=== PATIENT | male | born 1945 | race Caucasian/White ===

== ENCOUNTER 2017-08-29 12:33 | Observation (INO) | payer OTHER ==
--- NOTE | 2017-08-29 12:37 | EDPHY ---
H & P Time Seen by Provider: 08/29/17 12:36 HPI/ROS: CHIEF COMPLAINT: Shortness of breath and lightheaded HISTORY OF PRESENT ILLNESS: Patient has a history of atrial fibrillation and coronary disease with aortic valve replacement and is currently on Eliquis. He has noticed over the last 3 weeks using his Apple watch that his heart rate varies from 35-100. He has been feeling intermittently lightheaded over this time. He presents today with shortness of breath which is worse lying down and present over the last week, but not reliably associated with exercise or time of day. Able to walk the dog, didn't get worse then. Symptoms not associated with chest pain cough or fever or leg swelling. Mild to moderate and persistent , slightly worse past 48 hours. Patient has not had his dose of Eliquis or Coreg changed recently, nor has he missed any of the doses of those medications in the last week. REVIEW OF SYSTEMS: Eye: no change in vision ENT: no sore throat Cardiac: no chest pain or syncope, several episodes of near syncope, no actual fainting Pulmonary: No coughing or hemoptysis Abdomen: no vomiting, diarrhea, or abdominal pain; no melena Musculoskeletal: no back pain or leg swelling Skin: no rash Neuro: no headache Constitutional: no fever : no urinary symptoms A comprehensive 10 point review of systems is otherwise negative aside from elements mentioned in the history of present illness. PAST MEDICAL HISTORY: Emergency department record 05/31/2015 personally reviewed. History and physical dated 05/19/2015 personally reviewed. Includes coronary artery disease with LAD stenting in 2000, hypertension, hyperlipidemia , BPH, osteoarthritis, bypass surgery and aortic valve replacement in June 2015 Social history: Nonsmoker General Appearance: Alert and conversant, cooperative. Eyes: No scleral icterus. ENT, Mouth: Normal mucous membranes. Respiratory: Normal respiratory effort, breath sounds equal, lungs are clear to auscultation. Cardiovascular: Regular rate and rhythm. 2/6 systolic murmur, bradycardic. Gastrointestinal: Abdomen is soft and non tender. Neurological: Alert and oriented x3. Normally conversant. Face symmetric, normal movement and sensation in all extremities. Skin: Warm and dry, no rashes. Musculoskeletal: No peripheral edema and no joint swelling. No calf tenderness. Psychiatric: Not agitated. Emergency Department course/MDM: Patient noted in the emergency department to have recurrent bradycardia down to a heart rate of 30. On the strips it does appear to be sinus rhythm. Plan for chest x-ray, labs to include BNP and troponin, cardiac monitoring. I think that pulmonary embolism would be unlikely since he is taking Eliquis. Plan for admission, consideration of holding Coreg, cardiology consultation with monitoring for bradycardia. Slowest heart rate seen on the monitor in the emergency department is around 30. Discussed with Regine Rainey at 1318. 1320: Results and plan discussed with the patient. Chest x-ray reviewed with him on the computer. Reason for transfer for inpatient telemetry and cardiology consultation not available at [facility] discussed and consented. Transported by ALS, medical necessity is for bradycardia and monitoring. Smoking Status: Never smoked Constitutional: Initial Vital Signs Temperature (C) 36.7 C 08/29/17 12:39 Heart Rate 40 L 08/29/17 12:39 Respiratory Rate 18 08/29/17 12:39 Blood Pressure 127/61 H 08/29/17 12:39 O2 Sat (%) 97 08/29/17 12:39 O2 Delivery Mode Room Air Allergies/Adverse Reactions: No Known Allergies Allergy (Verified 08/29/17 12:38) Home Medications: Medication Instructions Recorded Atorvastatin Calcium [Lipitor 40 40 mg PO HS 05/18/15 mg (*)] Desonide 0.05% [Desonide 0.05% 1 hazel TP TID PRN 05/18/15 Cream (*)] Finasteride [Proscar 5 MG (*)] 5 mg PO DAILY 05/18/15 Herbals/Supplements -Info Only 1 dose AD 05/18/15 Ketoconazole 2% [Nizoral Shampoo 1 hazel TP Q2D PRN 05/18/15 (*)] Multivitamins [Multivitamin (*)] 1 each PO DAILY 05/18/15 [place]-3 Fatty Acids [Fish Oil 1000 1,000 mg PO BID 05/18/15 mg (*)] Carvedilol [Coreg (*)] 3.125 mg PO BIDMEAL #60 tab 05/25/15 Bumex 08/29/17 Cq10 08/29/17 Docusate Sodium 08/29/17 Eliquis 08/29/17 Flomax 08/29/17 Metamucil 08/29/17 Omeprazole 08/29/17 Potassium Chloride 08/29/17 Trazadone 08/29/17 Medical Decision Making - Diagnostics EKG Interpretation: 12-lead EKG interpreted by me; official reading is in trace master. My interpretation is sinus rhythm rate 53 with APC and nonspecific lateral T-wave flattening. Differential Diagnosis: Differential diagnosis considered for shortness of breath including but not limited to cardiac dysrhythmia bradycardia, pulmonary infectious process, COPD, asthma, pulmonary embolus and congestive heart failure. Consult/Admit Bed Type: [facility] 1309 - Data Points Laboratory Results: Laboratory Results 08/29/17 12:49 08/29/17 12:49 08/29/17 08/29/17 12:49 12:49 WBC 5.78 10^3/uL 10^3/uL (3.80-9.50) RBC 5.19 10^6/uL 10^6/uL (4.40-6.38) Hgb 9.5 g/dL L g/dL (13.7-17.5) Hct 33.1 % L % (40.0-51.0) MCV 63.8 fL L fL (81.5-99.8) MCH 18.3 pg L pg (27.9-34.1) MCHC 28.7 g/dL L g/dL (32.4-36.7) RDW 19.9 % H % (11.5-15.2) Plt Count 136 10^3/uL L 10^3/uL (150-400) MPV TNP Neut % (Auto) 70.3 % % (39.3-74.2) Lymph % (Auto) 18.3 % % (15.0-45.0) [place] % (Auto) 8.5 % % (4.5-13.0) Eos % (Auto) 1.7 % % (0.6-7.6) Baso % (Auto) 0.9 % % (0.3-1.7) Nucleat RBC Rel Count 0.0 % % (0.0-0.2) Absolute Neuts (auto) 4.06 10^3/uL 10^3/uL (1.70-6.50) Absolute Lymphs (auto) 1.06 10^3/uL 10^3/uL (1.00-3.00) Absolute Monos (auto) 0.49 10^3/uL 10^3/uL (0.30-0.80) Absolute Eos (auto) 0.10 10^3/uL 10^3/uL (0.03-0.40) Absolute Basos (auto) 0.05 10^3/uL 10^3/uL (0.02-0.10) Absolute Nucleated RBC 0.00 10^3/uL 10^3/uL (0-0.01) Immature Gran % 0.3 % % (0.0-1.1) Immature Gran # 0.02 10^3/uL 10^3/uL (0.00-0.10) Platelet Estimate Pending Smear Review By Pending Sodium 143 mEq/L mEq/L (134-144) Potassium 4.4 mEq/L mEq/L (3.5-5.2) Chloride 101 mEq/L mEq/L (97-110) Carbon Dioxide 26 mEq/l mEq/l (22-31) Anion Gap 16 mEq/L mEq/L (8-16) BUN 20 mg/dL mg/dL (7-23) Creatinine 1.0 mg/dL mg/dL (0.7-1.3) Estimated GFR > 60 Glucose 105 mg/dL H mg/dL (70-100) Calcium 8.9 mg/dL mg/dL (8.5-10.4) Troponin I < 0.012 ng/mL ng/mL (0.000-0.034) NT-Pro-B Natriuret Pep 1350 pg/mL H pg/mL (0-125) Departure - Dep[facility] [place] Clinical Impression: Bradycardia Dyspnea Qualifiers: Dyspnea type: unspecified Qualified Code(s): R06.00 - Dyspnea, unspecified Condition: Good
--- NOTE | 2017-08-29 12:49 | CPEKG ---
Heart Rate: 53 RR Interval: 1132 P-R Interval: 164 QRSD Interval: 96 QT Interval: 500 QTC Interval: 470 P [place]: 68 QRS [place]: -39 T Wave [place]: 79 EKG Severity - BORDERLINE ECG - EKG Impression: SINUS RHYTHM EKG Impression: ATRIAL PREMATURE COMPLEX EKG Impression: LEFT AXIS DEVIATION EKG Impression: MINIMAL ST DEPRESSION, LATERAL LEADS Electronically Signed By: Abdi Cates 29-Aug-2017 13:04:31
[2017-08-29 13:06] LABS: % IMMATURE GRANULYOCYTES 0.3 % (0.0-1.1); ABSOLUTE IMMATURE GRANULOCYTES 0.02 10^3/uL (0.00-0.10); ADD DIFF? NO; ADD MORPH? YES; ADD SCAN? NO; ATYPICAL LYMPHOCYTE FLAG 0 (0-99); FRAGMENT RBC FLAG 20 (0-99); HEMATOCRIT 33.1 % (40.0-51.0); HEMOGLOBIN 9.5 g/dL (13.7-17.5); LEFT SHIFT FLG 0 (0-99); LIPEMIA HEMOLYSIS FLAG 70 (0-99); MEAN CELL HEMOGLOBIN 18.3 pg (27.9-34.1); PLATELET CLUMPS FLAG 10 (0-99); PLATELET COUNT 136 10^3/uL (150-400); RED BLOOD CELL COUNT 5.19 10^6/uL (4.40-6.38); RED CELL DISTRIBUTION WIDTH 19.9 % (11.5-15.2)
[2017-08-29 13:07] LABS: MEAN CELL HEMOGLOBIN CONCENTR. 28.7 g/dL (32.4-36.7); MEAN CELL VOLUME 63.8 fL (81.5-99.8)
[2017-08-29 13:14] LABS: ANION GAP 16 mEq/L (8-16); CALCIUM 8.9 mg/dL (8.5-10.4); CARBON DIOXIDE 26 mEq/l (22-31); CHLORIDE 101 mEq/L (97-110); GLOMERULAR FILTRATION RATE > 60; GLUCOSE 105 mg/dL (70-100); POTASSIUM 4.4 mEq/L (3.5-5.2); SODIUM 143 mEq/L (134-144)
[2017-08-29 13:27] LABS: TROPONIN I < 0.012 ng/mL (0.000-0.034)
[2017-08-29 13:32] LABS: HYPOCHROMIA 1+; MICROCYTES 2+; PLATELET ESTIMATE DECREASED (ADEQ)
[2017-08-29 13:33] LABS: KERATOCYTES 1+; POLYCHROMASIA 1+
[2017-08-29] MEDS ORDERED: ACETAMINOPHEN 325 MG TAB PO PRN (14:07)
[2017-08-29] MEDS ORDERED: ONDANSETRON 4 MG/2 ML VIAL IVP PRN (14:07)
[2017-08-29] MEDS ORDERED: ONDANSETRON DISINTEGRATING 4 MG TAB PO PRN (14:07)
[2017-08-29] MEDS ORDERED: BUMETANIDE 1 MG/4 ML VIAL IVP ONE (17:15)
[2017-08-29] MEDS ORDERED: KETOCONAZOLE 2% 120 ML SHAMPOO TP PRN (18:39)
[2017-08-29] MEDS ORDERED: DESONIDE 0.05% 15 GM CREAM TP PRN (18:39)
--- NOTE | 2017-08-29 18:44 | PDGENHP ---
History and Physical - Chief Complaint Acute shortness of breath - History of Present Illness Primary care provider: Dr. Serrano Primary dining chair seat cushion trimmer: Dr. Mark Rainey Primary cardiothoracic surgeon: Dr. Aleks Roy Primary urologist: Dr. Qamar Baker HPI: 71-year-old male presenting with acute shortness of breath characterized as sensation like he is not able to breathe occurring while he is lying supine at night requiring him to take a deep, volitional breath in order to alleviate the symptoms. This began approximately 1 week ago but has had constant duration occurring nightly, with recent worsening over the past 48 hours. Last night he slept particularly poorly. He has also been experiencing some intermittent lightheadedness, exacerbated by standing up from seated position. He notes gaining 3 lb over the past 2 days and over the past 3 weeks he has intermittently experienced palpitations and checked his heart rate, documenting rates 30-100 beats per minute. He denies any overt chest pain, and denies any exertional component to his symptoms. History Information - Allergies/Home Medication List Allergies/Adverse Reactions: No Known Allergies Allergy (Verified 08/29/17 12:38) Home Medications: Atorvastatin Calcium [Lipitor 40 mg (*)] 40 mg PO HS 05/18/15 [Last Taken ] Desonide 0.05% [Desonide 0.05% Cream (*)] 1 hazel TP TID PRN 05/18/15 [Last Taken 08/29/17] Finasteride [Proscar 5 MG (*)] 5 mg PO DAILY 05/18/15 [Last Taken 08/29/17] Herbals/Supplements -Info Only 1 dose AD 05/18/15 [Last Taken Unknown] Ketoconazole 2% [Nizoral Shampoo (*)] 1 hazel TP Q2D PRN 05/18/15 [Last Taken ] Multivitamins [Multivitamin (*)] 1 each PO DAILY 05/18/15 [Last Taken 08/29/17] [place]-3 Fatty Acids [Fish Oil 1000 mg (*)] 1,000 mg PO BID 05/18/15 [Last Taken 08/29/17] Apixaban [Eliquis] 5 mg PO BID 08/29/17 [Last Taken 08/29/17] Bumetanide [Bumex (*)] 1 mg PO DAILY 08/29/17 [Last Taken 08/29/17] Carvedilol [Coreg (*)] 6.25 mg PO BIDMEAL 08/29/17 [Last Taken 08/29/17] Docusate Sodium [Colace 100 MG (*)] 100 mg PO DAILY 08/29/17 [Last Taken ] Omeprazole [Prilosec 20 mg] 40 mg PO DAILY@1600 08/29/17 [Last Taken 08/28/17] Potassium Cl [Klor-Con 20 meq (*)] 20 meq PO DAILY 08/29/17 [Last Taken 08/29/17 ] Psyllium Husk (with Sugar) [Metamucil Powder] 2 tsp PO DAILY 08/29/17 [Last Taken 08/29/17] Tamsulosin HCl [Flomax 0.4 MG (*)] 0.4 mg PO DAILY 08/29/17 [Last Taken 08/29/17 ] traZODone [traZODONE 50MG (*)] 100 mg PO HS 08/29/17 [Last Taken 08/28/17] I have personally reviewed and updated: family history, medical history, social history, surgical history - Past Medical History atrial fibrillation (Paroxysmal, experiencing rapid ventricular response on a daily basis, symptomatic), coronary artery disease (LAD stent in 2000), hypertension, hyperlipidemia Additional medical history: Previous bladder stone. Previous nocturnal hypoxia but no official sleep study. BPH. Osteoarthritis - Surgical History Reports: coronary bypass surgery (With aortic valve replacement for bicuspid aortic valve in May 2015) - Family History Additional family history: Sibling with valve issues, sibling with myocardial infarction at age 70, father with pheochromocytoma - Social History Smoking Status: Never smoked Alcohol Use: Rarely Drug Use: None Additional social history: Previously physically active and healthy person, somewhat limited by his symptomatic AFib recently Review of Systems Review of Systems: ROS: 10pt was reviewed & negative except for what was stated in HPI & below Respiratory: Reports: shortness of breath Neurological: Reports: other (Lightheadedness) Physical Exam Physical Exam: Temp Pulse Resp BP Pulse Ox 36.7 C 58 L 14 140/73 H 98 08/29/17 16:43 08/29/17 16:43 08/29/17 16:43 08/29/17 16:43 08/29/17 16:43 Constitutional: no apparent distress, appears nourished, not in pain Eyes: PERRL, anicteric sclera, EOMI Ears, Nose, Mouth, Throat: moist mucous membranes, hearing normal, ears appear normal, no oral mucosal ulcers Cardiovascular: systolic murmur (3/6 at all valve location), bradycardia, edema (Trace bilateral lower extremities), other (Regular rhythm with occasional ectopy) Respiratory: no respiratory distress, inspiratory crackles (Faint in the right base), No reduced air movement, No expiratory wheeze, No respiratory distress Gastrointestinal: normoactive bowel sounds, soft, non-tender abdomen, no palpable masses Genitourinary: no bladder fullness, no bladder tenderness Skin: No abrasion, No rash Neurologic: AAOx3, sensation intact bilaterally, other (No dizziness reproduced with rotational movement of the head) Psychiatric: interacting appropriately, not anxious, not encephalopathic, thought process linear Lab Data & Imaging Review 08/29/17 12:49 08/29/17 12:49 WBC 5.78 10^3/uL (3.80-9.50) 08/29/17 12:49 RBC 5.19 10^6/uL (4.40-6.38) 08/29/17 12:49 Hgb 9.5 g/dL (13.7-17.5) L 08/29/17 12:49 Hct 33.1 % (40.0-51.0) L 08/29/17 12:49 MCV 63.8 fL (81.5-99.8) L 08/29/17 12:49 MCH 18.3 pg (27.9-34.1) L 08/29/17 12:49 MCHC 28.7 g/dL (32.4-36.7) L 08/29/17 12:49 RDW 19.9 % (11.5-15.2) H 08/29/17 12:49 Plt Count 136 10^3/uL (150-400) L 08/29/17 12:49 MPV TNP 08/29/17 12:49 Neut % (Auto) 70.3 % (39.3-74.2) 08/29/17 12:49 Lymph % (Auto) 18.3 % (15.0-45.0) 08/29/17 12:49 [place] % (Auto) 8.5 % (4.5-13.0) 08/29/17 12:49 Eos % (Auto) 1.7 % (0.6-7.6) 08/29/17 12:49 Baso % (Auto) 0.9 % (0.3-1.7) 08/29/17 12:49 Nucleat RBC Rel Count 0.0 % (0.0-0.2) 08/29/17 12:49 Absolute Neuts (auto) 4.06 10^3/uL (1.70-6.50) 08/29/17 12:49 Absolute Lymphs (auto) 1.06 10^3/uL (1.00-3.00) 08/29/17 12:49 Absolute Monos (auto) 0.49 10^3/uL (0.30-0.80) 08/29/17 12:49 Absolute Eos (auto) 0.10 10^3/uL (0.03-0.40) 08/29/17 12:49 Absolute Basos (auto) 0.05 10^3/uL (0.02-0.10) 08/29/17 12:49 Absolute Nucleated RBC 0.00 10^3/uL (0-0.01) 08/29/17 12:49 Immature Gran % 0.3 % (0.0-1.1) 08/29/17 12:49 Immature Gran # 0.02 10^3/uL (0.00-0.10) 08/29/17 12:49 Platelet Estimate DECREASED (ADEQ) L 08/29/17 12:49 Polychromasia 1+ H 08/29/17 12:49 Hypochromasia 1+ H 08/29/17 12:49 Microcytic Cells 2+ H 08/29/17 12:49 Keratocytes 1+ H 08/29/17 12:49 Sodium 143 mEq/L (134-144) 08/29/17 12:49 Potassium 4.4 mEq/L (3.5-5.2) 08/29/17 12:49 Chloride 101 mEq/L (97-110) 08/29/17 12:49 Carbon Dioxide 26 mEq/l (22-31) 08/29/17 12:49 Anion Gap 16 mEq/L (8-16) 08/29/17 12:49 BUN 20 mg/dL (7-23) 08/29/17 12:49 Creatinine 1.0 mg/dL (0.7-1.3) 08/29/17 12:49 Estimated GFR > 60 08/29/17 12:49 Glucose 105 mg/dL (70-100) H 08/29/17 12:49 Calcium 8.9 mg/dL (8.5-10.4) 08/29/17 12:49 Troponin I < 0.012 ng/mL (0.000-0.034) 08/29/17 12:49 NT-Pro-B Natriuret Pep 1350 pg/mL (0-125) H 08/29/17 12:49 TSH 0.736 uIU/mL (0.465-4.680) 08/29/17 12:59 Visualized and Interpreted Chest x-ray results: Yes Chest X-Ray results: no infiltrate Visualized and Interpreted EKG results: Yes EKG Interpretation: Positive for: other (Sinus arrhythmia with bradycardia) Assessment & Plan Assessment: 71-year-old male presenting with possible mild acute CHF exacerbation in the setting of possible second-degree heart block and resultant bradycardia Plan: 1. Possible acute CHF exacerbation. New problem this provider, further workup indicated. Evidenced by BNP of 1350, trace bilateral lower extremity edema, some faint inspiratory crackles in the right base, a recent reports of weight gain with worsening of orthopnea -get echocardiogram -give 1 dose of 1 mg IV Bumex, gauge symptomatic affect in a.m. -continue home dosage of Bumex 1 mg daily with supplemental potassium, monitor electrolytes -monitor daily weights, strict I&Os -the patient awakens with symptoms tonight, please check his supplemental oxygen level as he may have an element of nocturnal hypoxia which was reported on the outside records I have reviewed, discharge summary by Dina Loza from 2014 describing patient's CABG and aortic valve replacement, discharged home with supplemental oxygen for nocturnal hypoxia -is unclear if this patient has experienced this will recent worsening with increased fluid intake over the holidays or poor cardiac output in the setting of bradycardia/sick sinus syndrome/second-degree AV block 2. Possible second-degree heart block with bradycardia. Acute, appears to be present on telemetry, reviewed with nurse, currently has a normal systolic blood pressure and does not appear to be evolving into worsening block -continue monitor on telemetry -if worsening arrhythmias overnight or further symptoms, call cars immediately -discussed with Lauren Koo, she has signed this patient out to me for evaluation, I have reviewed the urgent care note by Dr. Abdi Cates, he reports that he has contacted Dr. Weiner for consultation -monitor electrolytes and blood pressure 3. Paroxysmal atrial fibrillation. Patient potentially has sick sinus syndrome and may require permanent pacemaker so he can receive adequate chiquita blocking therapy -will keep NPO in a.m. and will be evaluated by Cardiology determine whether pacemaker is appropriate -will hold Coreg -will hold Eliquis to facilitate safe for procedure if required urgently or emergently, no bridging therapy is indicated -will get metanephrine screen as this would be rare but potential cause of intermittent tachycardia with symptoms, and he has a family history of this Diet. Regular, NPO in a.m. Prophylaxis. High risk patient, SCDs overnight, holding Eliquis Code. Full Disposition. Anticipated discharge is 08/30, pending evaluation of conditions outlined above. If patient requires additional cardiac monitoring or permanent pacemaker placement, he should be upgraded to inpatient admission status as anticipated length stay is greater than 48 hours for reasonable medical necessity for the conditions outlined above.
[2017-08-29] MEDS: OMEGA-3 FATTY ACIDS 1,000 MG CAP PO SCH (20:35)
[2017-08-29] MEDS ORDERED: traZODone 50 MG TAB PO SCH (21:00)
[2017-08-29] MEDS ORDERED: ATORVASTATIN CALCIUM 40 MG TAB PO SCH (21:00)
[2017-08-30 05:45] LABS: APTT 37.8 SEC (23.0-38.0); INR 1.32 (0.83-1.16); PROTIME(PATIENT) 16.4 SEC (12.0-15.0)
[2017-08-30 06:16] LABS: ANION GAP 13 mEq/L (8-16); CALCIUM 8.7 mg/dL (8.5-10.4); CARBON DIOXIDE 24 mEq/l (22-31); CHLORIDE 105 mEq/L (97-110); CREATININE 0.9 mg/dL (0.7-1.3); GLOMERULAR FILTRATION RATE > 60; GLUCOSE 85 mg/dL (70-100); MAGNESIUM 1.9 mg/dL (1.6-2.3); POTASSIUM 4.1 mEq/L (3.5-5.2); SODIUM 142 mEq/L (134-144)
[2017-08-30 06:28] LABS: TROPONIN I < 0.012 ng/mL (0.000-0.034)
[2017-08-30] MEDS ORDERED: BUMETANIDE 1 MG TAB PO SCH (09:00)
[2017-08-30] MEDS ORDERED: MULTIVITAMINS 1 EACH TAB PO SCH (09:00)
[2017-08-30] MEDS ORDERED: FINASTERIDE 5 MG TAB PO SCH (09:00)
[2017-08-30] MEDS ORDERED: PANTOPRAZOLE SODIUM 40 MG TAB PO SCH (09:00)
[2017-08-30] MEDS ORDERED: TAMSULOSIN HCL 0.4 MG CAP PO SCH (09:00)
[2017-08-30] MEDS ORDERED: PSYLLIUM METAMUCIL 1 PKT PO SCH (09:00)
[2017-08-30] MEDS ORDERED: DOCUSATE SODIUM 100 MG CAP PO SCH (09:00)
[2017-08-30] MEDS ORDERED: POTASSIUM CL 20 MEQ TAB PO SCH (09:00)
[2017-08-30 09:07] VITALS: RESP 12
[2017-08-30] MEDS: OMEGA-3 FATTY ACIDS 1,000 MG CAP PO SCH (10:15)
--- NOTE | 2017-08-30 11:16 | PDCARPN ---
Cardiology Progress Note Assessment/Plan: Assessment: 1. CAD sp PCI and CABG 2. SP AVR 3. Atrial fibrillation 4. HTN 5. PVCs 6. Sinus bradycardia Plan: 1. Decrease BB dose from 12.5 mg BID to 3.125 mg BID 2. 2 week outpatient monitor 3. Maintain regular follow up with Dr. Rainey, to see him after monitor 4. Discussed the fact that he may need pacemaker if monitor continues to show bradycardia with low dose BB 5. At his request, discussed indications for PVC ablatio;n with him and his - symptoms, VT or PVC induced cardiomyopathy 6. He will have an echocadiogram prior to d.c. given murmur (noted on Dr. Rainey 's note in 02/2017 as well) and elevated BNP. cookie Live 08/30/17 11:13 Subjective: Patient known to our practice. He called me yesterday with symptoms of orthostatic dizziness and a sensation of having to take a deep breath when he lies down. No orthopnea or PND. No pedal edema. His HR was in 30s to 40s in ED yesterday, has been 40s to 50s this AM after BB were held. Reviewed/Discussed With: family Time Spent With Patient: 45 min Objective: Vital Signs (8 Hrs) Temp Pulse Pulse Pulse Pulse Resp BP 08/30/17 08:00 36.6 C 54 L 54 L 54 L 54 L 12 101/54 L 08/30/17 04:35 36.8 C 56 L 16 112/58 L BP BP BP Pulse Ox 08/30/17 08:00 112/76 126/67 H 101/54 L 93 08/30/17 04:35 94 Intake/Output (24 Hrs) 08/28/17 08/29/17 08/30/17 11:59 11:59 11:59 Output Total 1100 Balance -1100 Output: Urine (ml) 1100 Toilet 1100 Other: Weight 83 kg Number of Voids Toilet 1 Number of Stools Toilet 1 Result Diagrams: 08/29/17 12:49 08/30/17 04:56 Cardiac Labs: Cardiac Lab Results (72 Hrs) 08/30/17 04:56 Troponin I < 0.012 EKG: NSR with PAC Telemetry: Sinus bradycardia, HR 51 bpm at time of exam - Physical Exam Constitutional: WDWN, healthy appearing, no apparent distress Eyes: PERRL, EOMI Ears, Nose, Mouth, Throat: moist mucous membranes Cardiovascular: regular rate and rhythm, systolic murmur Respiratory: clear to auscultate bilat Gastrointestinal: normoactive bowel sounds Neurologic: AAOx3 Psychiatric: cooperative, interactive, following commands, not anxious ICD10 Worksheet Patient Problems: Problems Problem Status Onset Syncope Acute CAD, multiple vessel Acute Aortic valve stenosis with insufficiency Acute Left thyroid nodule Acute Bladder calculus Acute S/P AVR Acute S/P ascending aortic replacement Acute S/P CABG x 4 Acute Anemia Acute Leukocytosis Acute Thrombocytopenia Acute Nocturnal hypoxemia Acute Dyspnea Acute Bradycardia Acute
[2017-08-30 13:18] VITALS: PULSE 69; TEMP 98.3; O2SAT 94
[2017-08-30 13:20] VITALS: BP 122/66
--- NOTE | 2017-08-30 13:59 | ECHO ---
[email or web address] [address] Main: [phone] Fax: Transthoracic Echocardiogram Name: BING ALLEN MR#: [id number] Study Date: 08/30/2017 Study Time: 11:59 AM Date of : 1945 Age: 71 year(s) Height: 175.3 cm (69 in.) Weight: ( ) BSA: Gender: Male Examination: Echo Indication: Bradycardia Image Quality: Contrast: Requested by: Nilo Cole BP: 112 mmHg/64 mmHg Heart Rate: Rhythm: Indication: Bradycardia Procedure Staff Supervisor Cutting Department: Donya Damico Physician: Nilo Kinsey Requesting Provider: Conclusions: Normal size left ventricle. No LV hypertrophy. Normal global systolic LV function. EF is 67 %. The left atrium is mildly dilated. The right atrium is borderline dilated. Mild mitral valve regurgitation is present. The aortic valve is a bioprosthesis. AV max PG is 40mmHG. AV mean PG is 22mmHG.. Mild to moderate tricuspid valve regurgitation. Measurements: Chambers Valvular Assessment AV/MV Valvular Assessment TV/PV Normal Normal Normal Name Value Range Name Value Range Name Value Range Ao [place] (MM): 2.3 cm (2.2 cm-3.7 AV meanP mmHg ( - ) TR Vmax: 2.77 mm/s ( - ) cm) MV E Vmax: 0.93 m/s ( - ) TR PGmax: 31 mmHg ( - ) IVSd (2D): 0.7 cm (0.6 cm-1.1 MV A Vmax: 0.63 m/s ( - ) syst. PAP: 36 mmHg ( - ) cm) MV E/A: 1.48 ( - ) LVDd (2D): 4.6 cm (4.2 cm-5.9 cm) LVDs (2D): 2.8 cm (2.1 cm-4 cm) LVPWd (2D): 0.9 cm (0.6 cm-1 cm) LVEF (MOD4): 67 % (>=55 %) Continued Measurements: Chambers Valvular Assessment AV/MV Valvular Assessment TV/PV Patient: BING ALLEN Study Date: 08/30/2017 Page 1 of 2 11:59 AM Name Value Name Value Name Value LADs: 4.1 cm MV E' Septal: 0.06 m/s CVP (est.): 5 mmHg LADs Lon.5 cm MV E/E' Septal: 16.70 LA Area: 26.2 cm2 MV E/E' Lateral: 6.80 Findings: Left Ventricle: Normal size left ventricle. No LV hypertrophy. Normal global systolic LV function. EF is 67 %. No regional wall motion abnormality. Right Ventricle: Normal size right ventricle. Left Atrium: The left atrium is mildly dilated. Right Atrium: The right atrium is borderline dilated. Mitral Valve: Mild mitral annular calcification. Mild mitral valve regurgitation is present. Aortic Valve: The aortic valve is a bioprosthesis. Trivial prosthesis regurgitation. AV max PG is 40mmHG. AV mean PG is 22mmHG.. Tricuspid Valve: The tricuspid valve is normal in appearance and function. The pulmonary artery pressure is normal. Mild to moderate tricuspid valve regurgitation. Pulmonic Valve: Pulmonary valve not well visualized. Aorta: The aorta is normal. Pericardium: No pericardial effusion. (No Signature Object) Patient: BING ALLEN Study Date: 08/30/2017 Page 2 of 2 11:59 AM [id number]
--- NOTE | 2017-08-30 14:37 | ASMTCMCOM ---
CM Note CM Note Notes: Pt admitted with bradycardia, possible CHF exacerbation. Hx afib, CAD with stenting 2000, HTN. Per cardiology, may need pacemaker. Pt followed by cardiology outpt and will follow up with them after d/c. Anticipate d/c with no CM needs but will continue to follow for any unanticipated needs. Date Signed: 08/30/2017 02:37 PM Electronically Signed By:ALEX Cox
--- NOTE | 2017-08-30 15:00 | ASDISCHSUM ---
Discharge Information Plan Status:Home with No Needs Medically Cleared to Leave:08/29/2017 Discharge Date:08/29/2017 CM D/C Disposition:Home, Routine, Self-Care ADT D/C Disposition:Home, Routine, Self-Care Projected Discharge Date:08/29/2017 Transportation at D/C:Family Discharge Delay Reason: Follow-Up Date:08/29/2017 Discharge Slot: Final Diagnosis: Placement Information Patient Contact Information Contact Name:RAISA Relationship: Address:[address] City:[facility] Phone: [facility]/Zip Code:[place] [address] Email: Financial Information Financial Class: Primary Plan Desc:MEDICARE OUTPATIENT Primary Plan Number:[id number] Secondary Plan Desc:[facility] Secondary Plan Number:[id number] Assessment Information [facility] CM Progress Note CM Note CM Note Notes: Pt admitted with bradycardia, possible CHF exacerbation. Hx afib, CAD with stenting 2000, HTN. Per cardiology, may need pacemaker. Pt followed by cardiology outpt and will follow up with them after d/c. Anticipate d/c with no CM needs but will continue to follow for any unanticipated needs. Date Signed: 08/30/2017 02:37 PM Electronically Signed By:ALEX Cox Case Management Discharge Plan Note Case Management Discharge Discharge Order Complete? Answers: Yes Patient to Obtain Answers: via Family Medications Transportation Arranged Answers: Family/Friends Family Notified Answers: Yes Discharge Comments Notes: Pt discharging home today with no CM needs. Date Signed: 08/30/2017 02:59 PM Electronically Signed By:ALEX Cox Intervention Information
[2017-08-30] MEDS ORDERED: CARVEDILOL 3.125 MG TAB PO SCH (18:00)
--- NOTE | 2017-08-30 21:06 | GDS ---
[f rep st] DISCHARGE SUMMARY DISCHARGE DIAGNOSES: 1. Sinus bradycardia due to beta blockade. 2. Coronary artery disease, status post previous coronary artery bypass graft and stents. 3. Atrial fibrillation. 4. Premature ventricular contractions. 5. Status post aortic valve replacement. HISTORY: The patient is a 71-year-old male who presented with shortness of breath with episodes of l ightheadedness. He was admitted to the hospital and found to be in a second-degree heart block with bradycardia. He was seen by Dr. Weiner. Dr. Weiner felt his beta moise dose was too high and reduced hi m to 3.125 mg p.o. b.i.d. Echocardiogram was unremarkable. Dr. Weiner recommended discharge with a 2-w [place] outpatient ambulatory cardiac monitoring and followup with Dr. Rainey. DISCHARGE MEDICATIONS: Please see computerized record for full detailed list. New medications: Coreg decreased to 3.125 mg p.o. b.i.d. ADDITIONAL DISCHARGE INSTRUCTIONS: 2-week outpatient hospice home care coordinator to be arranged through Dr. Mckeon Patient was seen and examined by me on the day of discharge. /[id number]/MODL
== END 2017-08-30 15:54 | disposition home or self-care (01) ==
LOC: CED 12:33 → CEDHOLD 13:11 → UNDOADMOB 13:14 → F2W 14:40
PROVIDERS: ADMIT Internal Medicine; ATTEND Internal Medicine
DX: I44.1 Atrioventricular block, second degree (principal); R00.1 Bradycardia, unspecified; I25.10 Atherosclerotic heart disease of native coronary artery without angina pectoris; I48.0 Paroxysmal atrial fibrillation; I49.3 Ventricular premature depolarization; I10 Essential (primary) hypertension; E78.5 Hyperlipidemia, unspecified; Z79.01 Long term (current) use of anticoagulants; Z95.5 Presence of coronary angioplasty implant and graft; Z95.4 Presence of other heart-valve replacement; Z95.1 Presence of aortocoronary bypass graft
CPT/HCPCS: 71020; 93005; 93306; 97165; G0378; G8987; G8988; G8989; 80048-PO; 83880-PO; 84443-PO; 84484-PO; 85025-PO

== ENCOUNTER → 2017-11-05 | Outpatient (CLI) | payer OTHER | LOC: BHFA 13:30 | PROVIDERS: ATTEND Internal Medicine Cardiovascular Disease | DX: I48.91 Unspecified atrial fibrillation (principal); I25.10 Atherosclerotic heart disease of native coronary artery without angina pectoris; I49.3 Ventricular premature depolarization ==

== ENCOUNTER 2017-11-20 09:48 | Day surgery (SDC) | payer OTHER ==
[2017-11-20 09:52] VITALS: O2SAT 99
--- NOTE | 2017-11-20 10:07 | CPEKG ---
Heart Rate: 131 RR Interval: 458 P-R Interval: 188 QRSD Interval: 78 QT Interval: 376 QTC Interval: 556 P [place]: 0 QRS [place]: -62 T Wave [place]: 192 EKG Severity - ABNORMAL ECG - EKG Impression: SINUS TACHYCARDIA EKG Impression: LEFT ANTERIOR FASCICULAR BLOCK EKG Impression: PROLONGED QT INTERVAL Electronically Signed By: Luz Merino 20-Nov-2017 16:25:52
--- NOTE | 2017-11-20 10:10 | EDPHY ---
H & P Stated Complaint: increasing hr/presyncope/sob with hx afib HPI/ROS: CHIEF COMPLAINT: Rapid heart rate, dyspnea, near-syncope HISTORY OF PRESENT ILLNESS: The patient is an anticoagulated 72 y/o male with cardiac disease history arriving with his complaining of a rapid heart rate and dyspnea for the last day. His medical history includes CAD with 2 stents, CABG x3, AVR, hypertension, hyperlipidemia, and atrial fibrillation/a flutter. His psychiatric attendant has been treating his atrial fibrillation with carvedilol, but recently had the dosage dropped due to persistent low heart rate around 30. He is actually scheduled for a pacemaker placement with Dr. Rainey in two weeks due to bradycardia. Yesterday, just after completing some sit-ups, he stood up and felt quite dyspneic and unable to catch his breath. He looked at the heart rate monitor on his watch and saw his HR was in the 130s. He had a brief, 60-second episode of mild chest pain yesterday evening. The rapid rate persisted throughout the night and this morning. While walking his dogs with his today, he had to stop several times to catch his breath, which is abnormal for him. At one point he felt near-syncopal and had to drop to his knees. His assisted him and he did not lose consciousness or suffer any injury from this. He also has some loss of appetite, but denies nausea or vomiting. No recent travel, calf pain, fever, cough, cold, abdominal pain, diarrhea. REVIEW OF SYSTEMS: A ten point review of systems was performed and is negative with the exception of the items mentioned in the HPI. Past medical history: 1. Vertigo 2. Hypertension 3. Arthritis 4. CAD 5. Atrial fibrillation - Carvedilol, Eliquis 6. PVCs 7. BPH - finasteride & Flomax 8. Hyperlipidemia - atorvastatin 9. Insomnia - trazodone 10. Gastritis - Prilosec 11. Hypokalemia - potassium 12. Edema - Bumex Past surgical history: Two cardiac stents in 2000, CABG x3 in 05/2015 with bioprosthetic aortic valve replacement - . Family history: Noncontributory Social history: at bedside. 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 Rainey Prior medical records reviewed including admission 08/29/17 for shortness of breath. General Appearance: Alert. Vital signs reviewed. Blood pressure 114/90, heart rate 128 at triage. Eyes: Pupils equal and round, no conjunctival injection, no discharge. Anicteric. ENT, Mouth: Mucous membranes are moist, no oropharyngeal erythema or edema. Neck: No lymphadenopathy, supple. Respiratory: Lungs are clear to auscultation; no wheezes, rales, or rhonchi. Cardiovascular: Tachycardic; no appreciable murmur, rub, or gallop. Gastrointestinal: Abdomen is soft and nontender, no masses or organomegaly, bowel sounds normal. Skin: Warm and dry, no rashes on exposed skin, normal color. Back: Nontender to palpation over the thoracolumbar spine. No CVAT. Extremities: No lower extremity edema, no calf tenderness or swelling. Neurological: Alert and oriented. Moving all four extremities easily and equally. Psychiatric: Normal affect. - Personal History Current Tetanus/Diphtheria Vaccine: Yes Tetanus Vaccine Date: < 10 years - Medical/Surgical History Hx Asthma: No Hx Chronic Respiratory Disease: No Hx Diabetes: No Hx Cardiac Disease: Yes Hx Renal Disease: No Hx Cirrhosis: No Hx Alcoholism: No Hx HIV/AIDS: No Hx Splenectomy or Spleen Trauma: No Other PMH: BPH, arthritis, HTN, CAD with two stents in 2000, insomnia,bypass x3 05/2015 with aortic valve replacement, a-fib and PVC's - Social History Smoking Status: Never smoked Constitutional: Initial Vital Signs Temperature (C) 36.7 C 11/20/17 09:49 Heart Rate 128 H 11/20/17 09:49 Respiratory Rate 20 11/20/17 09:49 Blood Pressure 114/90 H 11/20/17 09:49 O2 Sat (%) 99 11/20/17 09:49 O2 Delivery Mode Nasal Cannula O2 (L/minute) 2 Allergies/Adverse Reactions: No Known Allergies Allergy (Verified 11/20/17 09:49) Home Medications: Medication Instructions Recorded Atorvastatin Calcium [Lipitor 40 40 mg PO HS 05/18/15 mg (*)] Desonide 0.05% [Desonide 0.05% 1 hazel TP TID PRN 05/18/15 Cream (*)] Finasteride [Proscar 5 MG (*)] 5 mg PO DAILY 05/18/15 Herbals/Supplements -Info Only 1 dose AD 05/18/15 Ketoconazole 2% [Nizoral Shampoo 1 hazel TP Q2D PRN 05/18/15 (*)] Multivitamins [Multivitamin (*)] 1 each PO DAILY 05/18/15 [place]-3 Fatty Acids [Fish Oil 1000 1,000 mg PO BID 05/18/15 mg (*)] Apixaban [Eliquis] 5 mg PO BID 08/29/17 Bumetanide [Bumex (*)] 1 mg PO DAILY 08/29/17 Docusate Sodium [Colace 100 MG (*)] 100 mg PO DAILY 08/29/17 Omeprazole [Prilosec 20 mg] 40 mg PO DAILY@1600 08/29/17 Potassium Cl [Klor-Con 20 meq (*)] 20 meq PO DAILY 08/29/17 Psyllium Husk (with Sugar) 2 tsp PO DAILY 08/29/17 [Metamucil Powder] Tamsulosin HCl [Flomax 0.4 MG (*)] 0.4 mg PO DAILY 08/29/17 traZODone [traZODONE 50MG (*)] 100 mg PO HS 08/29/17 Carvedilol [Coreg (*)] 3.125 mg PO BIDMEAL #60 tab 08/30/17 Medical Decision Making - Diagnostics EKG Interpretation: 12 lead EKG is interpreted in Trace master View by emergency department physician. Atrial flutter. ED Course/Re-evaluation: This is a 72 y/o male with an extensive cardiac history who presents with a 1- day history of rapid heart rate and dyspnea with a near-syncopal event this morning. He has a rapid heart rate on exam, but otherwise is well-appearing. Plan for IV, labs, EKG. The 12 lead EKG was interpreted by myself. Atrial flutter. See hard copy and/ or "tracemaster" electronic copy for interpretation. 1115: Consulted with Dr. Kinsey, cardiology. He will review patient's records and assess patient in the ED. 11:30 a.m.: Patient re-evaluated. He continues with heart rate in the 130s. Systolic blood pressures just over 100. He is not experiencing chest pain, shortness of breath, or dizziness. Will start IV fluids while awaiting Cardiology evaluation. Patient has been cardioverted in the past and prefers cardioversion to pharmaceutical conversion. 1201: Spoke with Dr. Kinsey in the ED. He plans to take patient to the [facility] today for cardioversion. He is compliant with his Eliquis. Differential Diagnosis: I considered a differential diagnosis that includes but is not limited to atrial fib, atrial flutter, sinus tachycardia, dehydration and blood loss. - Data Points Laboratory Results: Laboratory Results 11/20/17 10:10 11/20/17 10:10 Medications Given: Discontinued Medications Sodium Chloride (Ns) 1,000 mls @ 0 mls/hr IV EDNOW ONE; Wide Open PRN Reason: Protocol Stop: 11/20/17 11:36 Last Admin: 11/20/17 11:50 Dose: 1,000 mls Departure - Departure Disposition: [facility] Inpatient Acute Clinical Impression: Near syncope Atrial flutter Qualifiers: Atrial flutter type: typical Qualified Code(s): I48.3 - Typical atrial flutter Condition: Fair Report Scribed for: Luz Merino Report Scribed by: Reina Monroe Date of Report: 11/20/17 Time of Report: 10:32 Physician Review and Approval Statement: 11/20/17 10:10 Portions of this note were transcribed by the biomedical equipment tech. I, Dr. Luz Merino, personally performed the history, physical exam, and medical decision- making; and confirmed the accuracy of the information in the transcribed note.
[2017-11-20 10:23] LABS: PLATELET COUNT 213 10^3/uL (150-400)
[2017-11-20 11:07] VITALS: BP 105/76; PULSE 133
[2017-11-20] MEDS ORDERED: NS 1,000 ML IV ONE (11:35)
[2017-11-20 12:11] VITALS: RESP 18; TEMP 97.9
[2017-11-20] MEDS ORDERED: ATROPINE SULFATE 1 MG/10 ML SYR IVP ONE (12:20)
[2017-11-20] MEDS ORDERED: NS 500 ML IV ONE (12:20)
[2017-11-20] MEDS ORDERED: ATROPINE SULFATE 1 MG/10 ML SYR ONE (14:54)
[2017-11-20] MEDS ORDERED: LIDOCAINE 2% 100 MG/5 ML SYR ONE (15:06)
[2017-11-20] MEDS ORDERED: PROPOFOL 200 MG/20 ML VIAL ONE (15:06)
--- NOTE | 2017-11-20 15:08 | PDCARCONS ---
Cardiology Consult Reason for Consult: Tachycardia Chief Complaint: Fast heart rates Requesting Physician: ER doctor History of Present Illness: Patient is a 72 y/o male, well known to [email or web address], with pending PPM implant scheduled in two weeks (given scheduling conflicts) with history of CAD s/p CABG (4V), AVR (at the same time as CABG), prior history of PCI, atrial fibrillation/flutter (on Eliquis with [id number] score of 4), with slow ventricular response (and pending PPM implant), HTN, HLP, and GERD, who presented to ER with complaints of rapid heart rate, shortness of breath, and feeling faint. Symptoms started yesterday afternoon, and have not stopped. Recent changes to the beta moise dose (Coreg) were implemented after bradycardia were noted (heart rates to 30 bpm). After exertion yesterday (sit ups) the patient noted accelerated heart rates as well as shortness of breath. Heart rates at home were noted to be greater than 130 bpm. Mild chest pain was also noted initially, but has not been noted since that time. In the ER, ECG with atrial flutter (2:1 AVB). Heart rates have continued at about 135 bpm. Remainder of the 12 point review of systems was unremarkable History Information - Allergies/Home Medication List Allergies/Adverse Reactions: No Known Allergies Allergy (Verified 11/20/17 09:49) Home Medications: Atorvastatin Calcium [Lipitor 40 mg (*)] 40 mg PO HS 05/18/15 [Last Taken ] Desonide 0.05% [Desonide 0.05% Cream (*)] 1 hazel TP TID PRN 05/18/15 [Last Taken 08/29/17] Finasteride [Proscar 5 MG (*)] 5 mg PO DAILY 05/18/15 [Last Taken 08/29/17] Herbals/Supplements -Info Only 1 dose AD 05/18/15 [Last Taken Unknown] Ketoconazole 2% [Nizoral Shampoo (*)] 1 hazel TP Q2D PRN 05/18/15 [Last Taken ] Multivitamins [Multivitamin (*)] 1 each PO DAILY 05/18/15 [Last Taken 08/29/17] [place]-3 Fatty Acids [Fish Oil 1000 mg (*)] 1,000 mg PO BID 05/18/15 [Last Taken 08/29/17] Apixaban [Eliquis] 5 mg PO BID 08/29/17 [Last Taken 08/29/17] Bumetanide [Bumex (*)] 1 mg PO DAILY 08/29/17 [Last Taken 08/29/17] Docusate Sodium [Colace 100 MG (*)] 100 mg PO DAILY 08/29/17 [Last Taken ] Omeprazole [Prilosec 20 mg] 40 mg PO DAILY@1600 08/29/17 [Last Taken 08/28/17] Potassium Cl [Klor-Con 20 meq (*)] 20 meq PO DAILY 08/29/17 [Last Taken 08/29/17 ] Psyllium Husk (with Sugar) [Metamucil Powder] 2 tsp PO DAILY 08/29/17 [Last Taken 08/29/17] Tamsulosin HCl [Flomax 0.4 MG (*)] 0.4 mg PO DAILY 08/29/17 [Last Taken 08/29/17 ] traZODone [traZODONE 50MG (*)] 100 mg PO HS 08/29/17 [Last Taken 08/28/17] I have personally reviewed and updated: family history, medical history, social history, surgical history Past Medical History: - Past Medical History atrial fibrillation, coronary artery disease, GERD, hypertension, hyperlipidemia Additional medical history: AVR - Surgical History Reports: angioplasty, coronary bypass surgery, coronary stent Additional surgical history: AVR and CABG both performed - Family History Positive for: non-pertinent - Social History Smoking Status: Never smoked Alcohol Use: None Drug Use: None Cardiac History - Cardiac History Past Cardiac History: CAD, PCI, CABG, AVR Cardiac Risk Factors: hypertension (>140/90), lipidemia, age > 65, male Timing/Duration: Days Severity: moderate Severity Scale: 8 Location: substernal Activities at Onset: activity Modifying Factors: improves with: rest Associated Symptoms: chest pain, shortness of breath, weakness JAYA Risk Evaluation age greater or equal to 65: yes greater or equal to 3 CAD risk factors: yes known CAD(stenosis greater or eqaul to 50%): yes ASA use in past 7 days: yes severe angina(greater or equal to 2 episodes in 24hrs): no EKG ST changes greater or equal to 0.5mm: no positive cardiac marker: no Total Score: 4 JAYA Score: 19.9% risk Physical Exam Physical Exam: Temp Pulse Resp BP Pulse Ox 36.6 C 133 H 18 105/76 99 11/20/17 12:08 11/20/17 12:08 11/20/17 12:08 11/20/17 12:08 11/20/17 12:08 O2 (L/minute) 2 Constitutional: no apparent distress, appears nourished, not in pain Eyes: PERRL Ears, Nose, Mouth, Throat: moist mucous membranes, hearing normal, ears appear normal Cardiovascular: no murmur, rub, or gallop, pulses symmetric bilaterally, tachycardia, No systolic murmur, No JVD Peripheral Pulses: 2+: dorsalis-pedis (R), dorsalis-pedis (L) Respiratory: no respiratory distress, no rales or rhonchi, clear to auscultation , No respiratory distress, No dullness to percussion Gastrointestinal: normoactive bowel sounds Skin: warm, No rash Musculoskeletal: full muscle strength, no muscle tenderness Neurologic: AAOx3, sensation intact bilaterally, CN II-XII Intact Psychiatric: interacting appropriately, not anxious, not encephalopathic Lab and Imaging 11/20/17 10:10 11/20/17 10:10 WBC 6.62 10^3/uL (3.80-9.50) 11/20/17 10:10 RBC 6.15 10^6/uL (4.40-6.38) 11/20/17 10:10 Hgb 10.7 g/dL (13.7-17.5) L 11/20/17 10:10 Hct 39.5 % (40.0-51.0) L 11/20/17 10:10 MCV 64.2 fL (81.5-99.8) L 11/20/17 10:10 MCH 17.4 pg (27.9-34.1) L 11/20/17 10:10 MCHC 27.1 g/dL (32.4-36.7) L 11/20/17 10:10 RDW 21.5 % (11.5-15.2) H 11/20/17 10:10 Plt Count 213 10^3/uL (150-400) 11/20/17 10:10 MPV 9.2 fL (8.7-11.7) 11/20/17 10:10 Neut % (Auto) 78.3 % (39.3-74.2) H 11/20/17 10:10 Lymph % (Auto) 13.4 % (15.0-45.0) L 11/20/17 10:10 [place] % (Auto) 5.7 % (4.5-13.0) 11/20/17 10:10 Eos % (Auto) 0.9 % (0.6-7.6) 11/20/17 10:10 Baso % (Auto) 1.4 % (0.3-1.7) 11/20/17 10:10 Nucleat RBC Rel Count 0.0 % (0.0-0.2) 11/20/17 10:10 Absolute Neuts (auto) 5.18 10^3/uL (1.70-6.50) 11/20/17 10:10 Absolute Lymphs (auto) 0.89 10^3/uL (1.00-3.00) L 11/20/17 10:10 Absolute Monos (auto) 0.38 10^3/uL (0.30-0.80) 11/20/17 10:10 Absolute Eos (auto) 0.06 10^3/uL (0.03-0.40) 11/20/17 10:10 Absolute Basos (auto) 0.09 10^3/uL (0.02-0.10) 11/20/17 10:10 Absolute Nucleated RBC 0.00 10^3/uL (0-0.01) 11/20/17 10:10 Immature Gran % 0.3 % (0.0-1.1) 11/20/17 10:10 Immature Gran # 0.02 10^3/uL (0.00-0.10) 11/20/17 10:10 Platelet Estimate ADEQUATE (ADEQ) 11/20/17 10:10 Hypochromasia 3+ H 11/20/17 10:10 Microcytic Cells 1+ H 11/20/17 10:10 Oval Macrocytes 1+ H 11/20/17 10:10 Elliptocytes 1+ H 11/20/17 10:10 Sodium 144 mEq/L (135-145) 11/20/17 10:10 Potassium 4.6 mEq/L (3.5-5.2) 11/20/17 10:10 Chloride 103 mEq/L (97-110) 11/20/17 10:10 Carbon Dioxide 29 mEq/l (22-31) 11/20/17 10:10 Anion Gap 12 mEq/L (8-16) 11/20/17 10:10 BUN 14 mg/dL (7-23) 11/20/17 10:10 Creatinine 1.0 mg/dL (0.7-1.3) 11/20/17 10:10 Estimated GFR > 60 11/20/17 10:10 Glucose 107 mg/dL (70-100) H 11/20/17 10:10 Calcium 9.5 mg/dL (8.5-10.4) 11/20/17 10:10 Total Bilirubin 0.9 mg/dL (0.1-1.4) 11/20/17 10:10 AST 36 IU/L (17-59) 11/20/17 10:10 ALT 47 IU/L (21-72) 11/20/17 10:10 Alkaline Phosphatase 63 IU/L (38-126) 11/20/17 10:10 Troponin I < 0.012 ng/mL (0.000-0.034) 11/20/17 10:10 Total Protein 7.3 g/dL (6.3-8.2) 11/20/17 10:10 Albumin 4.5 g/dL (3.5-5.0) 11/20/17 10:10 Visualized and Interpreted EKG results: Yes EKG additional interpertation: ECG from the ER with atrial flutter (2:1 AVB) not "sinus tachycardia" Telemetry: Atrial flutter with 2:1 AVB A/P Assessment: Patient is a 72 y/o male with history of CAD/PCI/CABG and AVR, atrial fib/ flutter with SSS s/p pending PPM, HTN, HLP, and GERD, who presented to [facility] ER with over 12 hours of tachycardia noted. ECG in the ER with atrial flutter and 2:1 AVB. Ongoing, uninterrupted Eliquis therapy for atrial fibrillation history. Discussion about cardioversion out of the arrhythmia and risks ( particularly bradycardia given the pending need for PPM implantation. Patient ate breakfast this morning, and anesthesia wanting to wait a few more hours until induction of sedation. Plan: Would proceed with cardioversion when acceptable to anesthesia. Risks and benefits were discussed. I communicated with Dr. Bladimir Rainey about the arrhythmia noted and our plans as well. Would continue medical therapy as at present - eliquis in particular. Should bradycardia be noted post cardioversion , would consider implantation of the PPM sooner than the scheduled 2 week. Further recommendations will be provided after cardioversion completed. Patient and were in agreement with these plans.
--- NOTE | 2017-11-20 15:09 | PDHPUP ---
History & Physical Update H&P update statement: This history and physical update is based on an assessment of the patient which was completed after admission or registration (within 24 hours), but prior to the surgery/procedure. H&P update: H&P reviewed & patient examined, no change in patient's condition since H&P completed
--- NOTE | 2017-11-20 15:26 | CPEKG ---
Heart Rate: 75 RR Interval: 800 P-R Interval: 160 QRSD Interval: 96 QT Interval: 408 QTC Interval: 456 P [place]: 85 QRS [place]: -60 T Wave [place]: 85 EKG Severity - ABNORMAL ECG - EKG Impression: SINUS RHYTHM EKG Impression: LEFT ANTERIOR FASCICULAR BLOCK Electronically Signed By: Dayne Campbell 20-Nov-2017 16:02:49
--- NOTE | 2017-11-20 15:47 | PDCARD ---
Cardioversion Procedure Procedure: electrical cardioversion for atrial flutter with rates of 136 bpm Indications: other (atrial flutter with 2:1 AVB at 136 bpm) Consent: signed and in chart Anticoagulation: eliquis Procedural Details: Consents for both anesthesia and cardioversion were signed and placed in the chart. Risks and benefits were discussed with the patient and . Anesthesia monitored heart rate, blood pressure, oxygen saturation, and respiratory rates. Synchronized cardioversion attempt #1: 100J Results: normal sinus rhythm Conclusions: successful cardioversion Conclusion Comment: Would maintain current oral therapies as at present and have outpatient PPM placed as scheduled. Patient Problems: Problems Problem Status Onset Near syncope Acute Tachycardia Acute Anemia Acute Aortic valve stenosis with insufficiency Acute Bladder calculus Acute Bradycardia Acute CAD, multiple vessel Acute Dyspnea Acute Left thyroid nodule Acute Leukocytosis Acute Nocturnal hypoxemia Acute S/P AVR Acute S/P CABG x 4 Acute S/P ascending aortic replacement Acute Syncope Acute Thrombocytopenia Acute
== END 2017-11-20 16:39 | disposition home or self-care (01) ==
LOC: FCATH 12:09
PROVIDERS: ATTEND Internal Medicine Cardiovascular Disease
PROC: 5A2204Z Restoration of Cardiac Rhythm, Single (ICD-10-PCS; principal; 2017-11-20)
DX: I48.92 Unspecified atrial flutter (principal); I48.91 Unspecified atrial fibrillation; I49.5 Sick sinus syndrome; R55 Syncope and collapse; R07.9 Chest pain, unspecified; I49.3 Ventricular premature depolarization; R00.1 Bradycardia, unspecified; I25.10 Atherosclerotic heart disease of native coronary artery without angina pectoris; I35.1 Nonrheumatic aortic (valve) insufficiency; I10 Essential (primary) hypertension; E78.5 Hyperlipidemia, unspecified; N40.0 Benign prostatic hyperplasia without lower urinary tract symptoms; G47.00 Insomnia, unspecified; K21.9 Gastro-esophageal reflux disease without esophagitis; Z79.01 Long term (current) use of anticoagulants; Z95.5 Presence of coronary angioplasty implant and graft; Z95.1 Presence of aortocoronary bypass graft
CPT/HCPCS: J0461; J2001; J2704

== ENCOUNTER 2017-12-03 07:12 | Observation (INO) | payer OTHER ==
--- NOTE | 2017-11-20 15:05 | PDANEPAE ---
ANE Past Medical History - Cardiovascular History Hx Hypertension: Yes Hx Arrhythmias: Yes Hx Chest Pain: No Hx Coronary Artery / Peripheral Vascular Disease: Yes Hx CHF / Valvular Disease: Yes Hx Palpitations: No Cardiovascular History Comment: AORTIC VALVE REPLACED, CABG, STENTS, CAROTID ARTERY DISEASE - Pulmonary History Hx COPD: No Hx Asthma/Reactive Airway Disease: No Hx Recent Upper Respiratory Infection: No Hx Oxygen in Use at Home: No Hx Sleep Apnea: No - Neurologic History Hx Cerebrovascular Accident: No Hx Seizures: No Hx Dementia: No - Endocrine History Hx Diabetes: No Hypothyroid: No Hyperthyroid: No Obesity: no - Renal History Hx Renal Disorders: Yes Renal History Comment: GROSS HEMATURIA, BPH - Liver History Hx Hepatic Disorders: No - Neurological & Psychiatric Hx Hx Neurological and Psychiatric Disorders: No - Cancer History Hx Cancer: Yes Cancer History Comment: SKIN CA BASAL CELL TO FACE 2012 - Congenital Disorder History Hx Congenital Disorders: No - GI History GERD: moderate Hx Gastrointestinal Disorders: Yes Gastrointestinal History Comment: GASTRITIS - Other Health History Other Health History: ARTHRITIS TO SHOULDERS AND KNEES, EASY BRUISING, - Chronic Pain History Chronic Pain: Yes - Surgical History Prior Surgeries: STENTS X 2 IN 2000, AORTIC VALVE REPLACED, DESENDING AORTA REPLACED, CABG X4 05/2015 ANE Review of Systems Review of Systems: - Exercise capacity METS (RN): 5 METS ANE Patient History - Allergies Allergies/Adverse Reactions: No Known Allergies Allergy (Verified 11/20/17 09:49) - Home Medications Home Medications: Atorvastatin Calcium [Lipitor 40 mg (*)] 40 mg PO HS 05/18/15 [Last Taken ] Desonide 0.05% [Desonide 0.05% Cream (*)] 1 hazel TP TID PRN 05/18/15 [Last Taken 08/29/17] Finasteride [Proscar 5 MG (*)] 5 mg PO DAILY 05/18/15 [Last Taken 08/29/17] Herbals/Supplements -Info Only 1 dose AD 05/18/15 [Last Taken Unknown] Ketoconazole 2% [Nizoral Shampoo (*)] 1 hazel TP Q2D PRN 05/18/15 [Last Taken ] Multivitamins [Multivitamin (*)] 1 each PO DAILY 05/18/15 [Last Taken 08/29/17] [place]-3 Fatty Acids [Fish Oil 1000 mg (*)] 1,000 mg PO BID 05/18/15 [Last Taken 08/29/17] Apixaban [Eliquis] 5 mg PO BID 08/29/17 [Last Taken 08/29/17] Bumetanide [Bumex (*)] 1 mg PO DAILY 08/29/17 [Last Taken 08/29/17] Docusate Sodium [Colace 100 MG (*)] 100 mg PO DAILY 08/29/17 [Last Taken ] Omeprazole [Prilosec 20 mg] 40 mg PO DAILY@1600 08/29/17 [Last Taken 08/28/17] Potassium Cl [Klor-Con 20 meq (*)] 20 meq PO DAILY 08/29/17 [Last Taken 08/29/17 ] Psyllium Husk (with Sugar) [Metamucil Powder] 2 tsp PO DAILY 08/29/17 [Last Taken 08/29/17] Tamsulosin HCl [Flomax 0.4 MG (*)] 0.4 mg PO DAILY 08/29/17 [Last Taken 08/29/17 ] traZODone [traZODONE 50MG (*)] 100 mg PO HS 08/29/17 [Last Taken 08/28/17] - NPO status NPO Since - Liquids (Date): 11/20/17 NPO Since - Liquids (Time): 08:00 NPO Since - Solids (Date): 11/20/17 NPO Since - Solids (Time): 08:00 - Smoking Hx Smoking Status: Never smoked - Family Anes Hx Family Hx Anesthesia Complications: NONE ANE Physical Exam - Airway Neck exam: FROM Mallampati Score: Class 1 Mouth exam: normal dental/mouth exam - Pulmonary Pulmonary: no respiratory distress, no rales or rhonchi, clear to auscultation - Cardiovascular Cardiovascular: irregularly irregular - ASA Status ASA Status: III ANE Anesthesia Plan Anesthesia Plan: MAC
--- NOTE | 2017-11-20 15:29 | POSTANESTH ---
Post Anesthetic Evaluation Cardiovascular Status: Normal, Stable Respiratory Status: Normal, Stable Level of Consciousness/Mental Status: Can Participate in Eval Pain Control: Adequate, Prn Tx Ordered Nausea/Vomiting Control: Adequate, Prn Tx Ordered Complications Possibly Related to Anesthesia: None Noted
[2017-12-03] MEDS ORDERED: DIAZEPAM 5 MG TAB PO ONE (07:18)
[2017-12-03] MEDS ORDERED: BACITRACIN IRRIGATION/NS 50,000 UNITS/1,000 ML BTL IRR ONE (07:18)
[2017-12-03] MEDS ORDERED: NS 1,000 ML IV ONE (07:18)
[2017-12-03] MEDS ORDERED: ceFAZolin 2 GM/SWFI 2 GM/20 ML SYR IVP ONE (07:18)
[2017-12-03] MEDS ORDERED: diphenhydrAMINE 25 MG CAP PO ONE (07:18)
--- NOTE | 2017-12-03 07:48 | CPEKG ---
Heart Rate: 48 RR Interval: 1250 P-R Interval: 168 QRSD Interval: 98 QT Interval: 480 QTC Interval: 429 P [place]: 75 QRS [place]: -45 EKG Severity - ABNORMAL ECG - EKG Impression: SINUS BRADYCARDIA EKG Impression: VENTRICULAR PREMATURE COMPLEX EKG Impression: LEFT ANTERIOR FASCICULAR BLOCK Electronically Signed By: Nilo Kinsey 03-Dec-2017 17:40:41
[2017-12-03 07:58] LABS: PLATELET COUNT 187 10^3/uL (150-400)
[2017-12-03 08:07] LABS: INR 1.15 (0.83-1.16); PROTIME(PATIENT) 14.9 SEC (12.0-15.0)
--- NOTE | 2017-12-03 08:55 | PDPROPOC ---
Sedation Plan of Care Sedation Plan of Care: vital signs stable, mental status noted, patient educated of risks, benefits, alternatives, patient can tolerate sedation ASA Classification: ASA 3 Planned drugs: fentanyl, midazolam Mallampati Score: Class 3 Mallampati Reference Image: Patient passed 3-3-2 rule?: Yes
[2017-12-03] MEDS ORDERED: LIDOCAINE 1% 300 MG/30 ML SDV ONE (08:57)
[2017-12-03] MEDS ORDERED: IOPAMIDOL (ISOVUE-300) 50 ML VIAL ONE (08:57)
[2017-12-03] MEDS ORDERED: MIDAZOLAM 2 MG/2 ML VIAL ONE ×2 (08:58→09:46)
[2017-12-03] MEDS ORDERED: LIDO/EPI 1% **for epidural** 30 ML SDV ONE (08:58)
[2017-12-03] MEDS ORDERED: fentaNYL 100 MCG/2 ML INJ ONE ×2 (08:58→09:45)
[2017-12-03] MEDS ORDERED: BUPIVACAINE 0.5% 10 ML SDV ONE (09:22)
--- NOTE | 2017-12-03 09:24 | EPPROC ---
Electrophysiology Procedure Note: PROCEDURE: MRI conditional dual-chamber pacemaker insertion. DATE OF PROCEDURE: 12/03/17 DEVICE: Implanted is a Edora 8 [id number] [id number], serial # [id number]. MRI conditional device. LEADS: The atrial lead is a Solia S 45, serial # [id number]. The ventricular lead is a Solia S 53, serial # [id number]. MRI conditional leads COMPLICATIONS: None HOUSEKEEPING MANAGER: Mark Rainey MD INDICATION AND APPROPRIATE USE CRITERIA: Sick sinus syndrome with sinus arrest and pauses of 4 seconds associated with presyncope, in a patient requiring beta blockers for wide complex tachycardia. PROCEDURE IN DETAIL: After informed consent was obtained and n.p.o. status was confirmed, the region of the left subclavicular fossa was cleaned, prepped and draped in a sterile fashion. Approximately 30 mL of 1% lidocaine was utilized for local anesthesia. The skin was sharply incised with a #10 blade. Electrocautery and local pressure were used for hemostasis. Sharp and blunt dissection was used to form a pacemaker pocket overlying the pectoralis major fascia. An 18-gauge Cook needle was used to gain access to the left subclavian vein x 2. J wires were advanced into the inferior vena cava. A 6-F peel-away sheath was advanced over the lateral wire. Wire and stylet were removed. Ventricular lead was manipulated with care into the RV apex under direct fluoroscopic guidance and screwed into place. Threshold was tested and found to be 0.7 V at 0.4 ms width. R-wave amplitude was measured at 8.4 mV. Lead impedance was 526 Ohms. The lead was sutured in place with #0 Ethibond. The medial wire was used to place a second 6 FR peel-away sheath. The wire and dilator were removed and a second pacer lead was manipulated with care into the right atrial appendage and screwed into place. The threshold was 0.7 V at 0.4 ms width. P-wave amplitude was 2.7 mV, lead impedance was 429 Ohms. The peel away sheath was removed and the leads were sutured in place with a #0 Ethibond. The pocket was thoroughly flushed and checked for bleeding. Hemostasis was established. The antibiotic soaked gauze was removed from the pocket. The atrial lead serial number was checked and placed in the upper pole lead housing of the pulse generator and set screw firmly applied. The procedure was repeated for the RV lead in the lower pole lead housing. The device was placed in the pocket and sutured in place with #0 Ethibond. The skin was closed with a 3- layered 3-0 Vicryl, 2-0 Vicryl and 4-0 Monocryl repair with excellent wound edge opposition and hemostasis documented. The patient returned to the post cath recovery unit in good and stable condition where a stat postoperative chest x-ray and EKG will be obtained. FINAL IMPRESSION: Successful dual-chamber pacemaker insertion without immediate complication. The patient will return to the post cath recovery region where a stat post operative chest x ray and ekg will be obtained. Patient Problems: Problems Problem Status Onset Anemia Acute Aortic valve stenosis with insufficiency Acute Atrial flutter Acute Bladder calculus Acute Bradycardia Acute CAD, multiple vessel Acute Dyspnea Acute Left thyroid nodule Acute Leukocytosis Acute Near syncope Acute Nocturnal hypoxemia Acute S/P AVR Acute S/P CABG x 4 Acute S/P ascending aortic replacement Acute Syncope Acute Thrombocytopenia Acute
[2017-12-03] MEDS ORDERED: ETOMIDATE 40 MG/20 ML INJ ONE (09:46)
[2017-12-03] MEDS ORDERED: DESONIDE 0.05% 15 GM CREAM TP PRN (10:38)
[2017-12-03] MEDS ORDERED: KETOCONAZOLE 2% 120 ML SHAMPOO TP PRN (10:38)
--- NOTE | 2017-12-03 11:09 | CPEKG ---
Heart Rate: 70 RR Interval: 857 P-R Interval: 204 QRSD Interval: 96 QT Interval: 436 QTC Interval: 471 QRS [place]: -45 T Wave [place]: 108 EKG Severity - ABNORMAL ECG - EKG Impression: ATRIAL-PACED RHYTHM EKG Impression: LEFT ANTERIOR FASCICULAR BLOCK EKG Impression: BORDERLINE T WAVE ABNORMALITIES EKG Impression: ATRIAL PACING IS NEW IN COMPARISON TO PRIOR Electronically Signed By: Nilo Kinsey 03-Dec-2017 17:41:25
[2017-12-03] MEDS ORDERED: HYDROCODONE/APAP 5/325 TAB PO PRN (13:14)
[2017-12-03] MEDS: ACETAMINOPHEN 325 MG TAB PO PRN ×3 (13:22→21:43)
[2017-12-03] MEDS ORDERED: NON-FORMULARY NEW DRUG (Omeprazole [Prilosec 20 Mg] 40 MG) PO SCH (16:00)
[2017-12-03] MEDS ORDERED: PANTOPRAZOLE SODIUM 40 MG TAB PO SCH (16:00)
[2017-12-03] MEDS: CARVEDILOL 3.125 MG TAB PO SCH (18:14)
[2017-12-03] MEDS ORDERED: traZODone 50 MG TAB PO SCH (21:00)
[2017-12-03] MEDS ORDERED: ATORVASTATIN CALCIUM 40 MG TAB PO SCH (21:00)
[2017-12-04 04:29] LABS: PLATELET COUNT 176 10^3/uL (150-400)
[2017-12-04] MEDS: CARVEDILOL 3.125 MG TAB PO SCH (07:57)
[2017-12-04 08:03] VITALS: BP 125/72; PULSE 70; RESP 17; TEMP 98.1; O2SAT 95
--- NOTE | 2017-12-04 08:45 | CPEKG ---
Heart Rate: 73 RR Interval: 822 P-R Interval: 180 QRSD Interval: 86 QT Interval: 416 QTC Interval: 459 QRS [place]: -41 T Wave [place]: 106 EKG Severity - ABNORMAL ECG - EKG Impression: ATRIAL-PACED RHYTHM EKG Impression: LEFT ANTERIOR FASCICULAR BLOCK Electronically Signed By: Nilo Kinsey 04-Dec-2017 20:38:26
[2017-12-04] MEDS ORDERED: OMEGA-3 FATTY ACIDS 1,000 MG CAP PO SCH (09:00)
[2017-12-04] MEDS ORDERED: FINASTERIDE 5 MG TAB PO SCH (09:00)
[2017-12-04] MEDS ORDERED: POTASSIUM CL 20 MEQ TAB PO SCH (09:00)
[2017-12-04] MEDS ORDERED: BUMETANIDE 1 MG TAB PO SCH (09:00)
[2017-12-04] MEDS ORDERED: DOCUSATE SODIUM 100 MG CAP PO SCH (09:00)
[2017-12-04] MEDS ORDERED: PSYLLIUM METAMUCIL 1 PKT PO SCH (09:00)
[2017-12-04] MEDS ORDERED: [UNRECOGNIZED DRUG - OTHER] PO SCH (09:00)
--- NOTE | 2017-12-04 12:57 | GDS ---
[f rep st] DISCHARGE SUMMARY DIAGNOSIS ADMISSION: 1. Bradycardia. 2. Presyncope. 3. Paroxysmal supraventricular tachycardia. 4. Coronary artery disease with remote history of coronary artery bypass grafting and percutaneous c oronary intervention. 5. Aortic valve disease, with remote bioprosthetic valve replacement. 6. Anemia. 7. Paroxysmal atrial fibrillation. DISCHARGE DIAGNOSIS: 1. Bradycardia. 2. Presyncope. 3. Status post dual chamber PPM with Biotronik generator and Biotronik atrial and ventricular lead p lacement. 4. Paroxysmal supraventricular tachycardia. 5. Coronary artery disease with remote coronary artery bypass grafting and percutaneous coronary. 6. Aortic valve disease, with remote bioprosthetic valve replacement. 7. Anemia. 8. Paroxysmal atrial fibrillation. PROCEDURES PERFORMED DURING HOSPITALIZATION: 1. Electrocardiogram. 2. Permanent pacemaker implantation with Biotronik device with Biotronik right atrial and right vent ricular leads. 3. Chest x-ray. 4. Electrocardiogram. BRIEF HISTORY: Please see H and P. Mr. Rodriguez is a 72-year-old male, who was recently in hospital f or presyncope, and noted to be bradycardic. At that time, his beta-moise had been reduced. He did undergo a 30 day monitor. He followed up with Dr. Weiner who noted off his Holter monitoring, salvos o f wide-complex tachycardia with palpitations. This was felt to be consistent with supraventricular t achycardia with aberrancy. Concerning with his past history of bradycardia on higher doses of beta-b locker, new arrhythmia noted with the lowering of the beta-moise, and history of higher doses of be ta moise with presyncope, it is felt best option at the time was to proceed with pacemaker implanta tion. HOSPITAL COURSE: Patient was admitted to CV, prepped for a procedure and taken to the cardiac antoine terization lab. There, Dr. Rainey successfully implanted a Biotronik pacemaker with atrial and ventr icular leads. No complications from the procedure. Patient was ultimately transferred back to the [facility] and to the PCU for overnight observation. On continuous cardiac monitoring, he has been in atrial paced with intrinsic ventricular response rhythm. Occasional PAC noted. No other malignant arrhyth mias or pauses. He has been up and walking the unit without difficulty. Denies any chest pain, shor tness of breath, or symptoms suggesting ischemia. PHYSICAL EXAMINATION DONE TODAY: GENERAL APPEARANCE: Medium built, well-groomed, male. He is alert and oriented to person, place, time, and situation. Appears to be under no acute distress. VITAL SIGNS: Current vital signs are blood pressure of 125/72, heart rate is 70, atrial paced rhyt hm, respirations 17, saturating 95% on room air, temperature of 36.7 degrees Celsius. HEENT: Head i s normocephalic. Lips and tongue are pink and moist with no signs of cyanosis. Conjunctivae pink. NECK: Trachea is midline, +2 carotid pulses bilateral, no auscultated bruits, no jugular vein disten tion. RESPIRATORY: Lungs are clear to auscultation, no rhonchi, rales or wheezes. No accessory mus nayana use, no intercostal muscle retraction noted. CARDIAC: Regular rate, regular rhythm, S1, S2, 2/6 systolic murmur noted in right and left upper chest. No S3 or rubs noted. ABDOMEN: Soft, nontende r, bowel sounds x4 quadrants, no organomegaly, no palpable masses. SKIN: [place], warm, dry, no cyanos is, no clubbing, no peripheral edema. VASCULAR: +2 carotids bilateral, +2 radials bilateral, +1 admian bianka pedal and posterior tibial pulses bilateral. PACEMAKER INCISION: Left anterior chest, just distal to clavicle, incision intact with Steri-Strips. No redness, swelling, drainage, ecchymosis, or rosy jad noted. No signs of infection. Dressing change done at this time. LABORATORY STUDIES: Laboratory studies drawn today show WBC of 6.37, hemoglobin of 9.8, hematocrit o f 34.9, platelet count of 176, sodium 143, potassium 4.3, chloride 107, CO2 26, BUN 12, creatinine 0. 9, glucose 80, calcium 8.5. PROCEDURES PERFORMED: 1. Pacemaker implantation, as mentioned above. 2. Chest x-ray done today shows no acute cardiopulmonary process, no delayed pneumothorax. 3. Device check done today by [place] [employer] showing device functioning within normal limits. 4. Electrocardiogram done today showing atrial paced rhythm with left anterior fascicular block intr insic rhythm. DISCHARGE DISPOSITION: Patient will be discharged home in stable condition. He is under activity re strictions. No strenuous activities for the next week, not lifting more than 10 pounds with the left arm for the next 6 weeks, not lifting left arm higher than shoulder height for the next 6 weeks. DISCHARGE MEDICATIONS: Please see discharge med reconciliation sheet. Note, the patient will resume Eliquis usage tomorrow morning. Also his carvedilol dosage has been increased back to 6.25 mg p.o. twice daily. DISCHARGE INSTRUCTIONS: Post pacemaker implantation discharge instructions went over with the michelle pereyra, and his , including monitoring for signs of infection, bleeding precautions, activity restrict ions, medication compliancy. At the time of discharge, both him and his understand. He has a d evice and wound check set up for 1 week and a followup appointment in our office in 3 weeks. At the time of discharge, both patient and his verbalized understanding of all instructions and have no questions or concerns. TIME SPENT: Total time spent on discharge greater than 30 minutes. /[id number]/MODL
== END 2017-12-04 11:59 | disposition home or self-care (01) ==
LOC: FCATH 07:12 → F2W 10:40
PROVIDERS: ADMIT Internal Medicine Cardiovascular Disease; ATTEND Internal Medicine Interventional Cardiology
PROC: 0JH606Z Insertion of Pacemaker, Dual Chamber into Chest Subcutaneous Tissue and Fascia, Open Approach (ICD-10-PCS; principal; 2017-12-03)
PROC: 02H63JZ Insertion of Pacemaker Lead into Right Atrium, Percutaneous Approach (ICD-10-PCS; principal; 2017-12-03)
PROC: 02HK3JZ Insertion of Pacemaker Lead into Right Ventricle, Percutaneous Approach (ICD-10-PCS; principal; 2017-12-03)
DX: I49.5 Sick sinus syndrome (principal); R55 Syncope and collapse; I47.1 Supraventricular tachycardia; I49.3 Ventricular premature depolarization; I25.10 Atherosclerotic heart disease of native coronary artery without angina pectoris; D64.9 Anemia, unspecified; I44.4 Left anterior fascicular block; I48.91 Unspecified atrial fibrillation; I35.1 Nonrheumatic aortic (valve) insufficiency; N40.0 Benign prostatic hyperplasia without lower urinary tract symptoms; I50.30 Unspecified diastolic (congestive) heart failure; E78.5 Hyperlipidemia, unspecified; I11.0 Hypertensive heart disease with heart failure; Z79.01 Long term (current) use of anticoagulants; Z82.49 Family history of ischemic heart disease and other diseases of the circulatory system; Z95.1 Presence of aortocoronary bypass graft; Z95.5 Presence of coronary angioplasty implant and graft; Z95.4 Presence of other heart-valve replacement
CPT/HCPCS: 33208; 71045; 71046; 93005; C1785; C1898; J0690; J2250; J3010; Q9967

== ENCOUNTER → 2018-08-05 | Outpatient (CLI) | payer OTHER | LOC: BHFA 10:00 | PROVIDERS: ATTEND Internal Medicine Cardiovascular Disease | DX: Z95.2 Presence of prosthetic heart valve (principal) ==